=== PATIENT | female | born 1990 | race African-American/Black ===

== ENCOUNTER 2017-04-24 22:23 | Inpatient (IN) | payer OTHER ==
[2017-04-25 02:13] VITALS: BP 109/70
[2017-04-25 07:14] VITALS: BP 99/64
[2017-04-25 15:06] VITALS: BP 115/71
[2017-04-26 07:45] VITALS: BP 102/59
[2017-04-26] MEDS ORDERED: CELEXA40 MG PO (09:01)
[2017-04-26] MEDS ORDERED: BUSPAR10 MG PO (09:01)
== END 2017-04-26 10:14 | disposition home or self-care (01) | DRG 885 ==
LOC: 1WEST 22:23 → ENRESERV 22:26 → 1WEST 22:28
DX: F33.1 Major depressive disorder, recurrent, moderate (principal); R45.851 Suicidal ideations; F63.81 Intermittent explosive disorder; F60.3 Borderline personality disorder; F41.9 Anxiety disorder, unspecified; F14.10 Cocaine abuse, uncomplicated
CPT/HCPCS: Q0177